=== PATIENT | male | born 1935 | race Caucasian/White ===

== ENCOUNTER → 2022-09-16 16:16 | Outpatient (CLI) | payer MEDICARE, OTHER, SELFPAY ==
--- NOTE | 2022-09-16 16:23 | DI.RAD.S_ITS ---
PROCEDURE: XR SHOULDER RT MIN 2V INDICATIONS: right shoulder pain reduced rom worsening x 7 days-fall TECHNIQUE: 3 views of the shoulder were acquired. COMPARISON: None. FINDINGS: Bones: No fractures or dislocations. No suspicious bony lesions. Visualized ribs appear intact. Mild glenohumeral and acromioclavicular joint osteoarthritis. Soft tissues: No suspicious soft tissue calcifications. Thoracic spine neurostimulator lead. 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 IMPRESSION: No fracture. No acute osseous lesion. If symptoms and/or clinical suspicion for pathology persists, further assessment with repeat radiographs (7-10 days) or advanced imaging (e.g. CT, MRI or bone scan) should be considered. Dictated by: Devorah Jones MD, PhD on 09/16/2022 at 16:50 Approved by: Devorah Jones MD, PhD on 09/16/2022 at 16:51
== END ==
PROVIDERS: Family Provider Internal Medicine; PCP Internal Medicine; Referring Provider Student in an Organized Health Care Education/Training Program; Visit Provider Student in an Organized Health Care Education/Training Program
DX: S46.919A Strain of unspecified muscle, fascia and tendon at shoulder and upper arm level, unspecified arm, initial encounter (principal); M25.511 Pain in right shoulder; M19.011 Primary osteoarthritis, right shoulder; Z98.2 Presence of cerebrospinal fluid drainage device; Z96.82 Presence of neurostimulator; W19.XXXA Unspecified fall, initial encounter
CPT/HCPCS: 73030

== ENCOUNTER → 2022-10-22 13:35 | Outpatient (CLI) | payer MEDICARE, OTHER, SELFPAY ==
--- NOTE | 2022-10-22 13:38 | DI.CT.S_ITS ---
PROCEDURE: CT SHOULDER RIGHT WITH CON INDICATIONS: BURSITIS IN RT SHOULDER TECHNIQUE: After the intra-articular administration of 12 mL of dilute non-ionic contrast, 1-1.5 mm thick sections acquired from the acromioclavicular joint to the inferior scapula, with coronal and sagittal reformatting. COMPARISON: [facility], CR, XR SHOULDER RT MIN 2V, 09/16/2022, 16:31. [facility], RF, [place] SHOULDER INJECTION MR/CT RT, 10/22/2022, 15:06. FINDINGS: Image quality: Excellent. Bones: There is no evidence for acute osseous abnormality identified. There is moderate to severe AC joint degenerative change and [id number] glenohumeral joint degenerative change. Contrast is noted to extend out of shoulder joint into the subacromial subdeltoid bursa consistent with full-thickness tears involving the supra and infraspinatus tendons. Soft tissues: Appear within normal limits. 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 IMPRESSION: 1. Contrast from the intra-articular injection does appear to extend out of the shoulder joint into the subacromial subdeltoid bursa with what appear to be a full-thickness tears of the supra and infraspinatus tendons. 2. 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 [id number] glenohumeral joint degenerative change. 4. 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 5. No evidence for acute osseous abnormality. Dictated by: Herber Clement M.D. on 10/22/2022 at 14:46 Approved by: Herber Celment M.D. on 10/22/2022 at 14:59
--- NOTE | 2022-10-22 13:39 | DI.RAD.S_ITS ---
PROCEDURE: [place] SHOULDER INJECTION MR/CT RT INDICATIONS: BURSITIS IN RT SHOULDER COMPARISON: Located Within [facility], CT, CT SHOULDER RIGHT WITH CON, 10/22/2022, 14:00. TECHNIQUE: The indications, alternatives, benefits, risks, and complications of the procedure were explained to the patient. Written informed consent was obtained and placed in the chart. The shoulder was examined fluoroscopically and a site for needle placement chosen for entry into the glenohumeral joint from an anterior approach. The skin was prepped and draped in a sterile fashion, and 1% lidocaine infiltrated from skin down to joint capsule. A spinal needle was inserted into the glenohumeral joint, and a small amount of iodinated contrast media injected to confirm intra-articular placement of the needle tip. This was followed by approximately 12 mL of iodinated contrast. The needle was removed and a dressing was applied. The patient was given postprocedural instructions and sent to the CT suite for imaging. FINDINGS: A single fluoroscopic spot image demonstrates intra-articular location of injected iodinated contrast. IMPRESSION: Successful fluoroscopically guided administration of iodinated contrast solution into the shoulder joint for CT arthrogram. Dictated by: Armando Guerra M.D. on 10/22/2022 at 16:43 Approved by: Armando Guerra M.D. on 10/22/2022 at 16:45
== END ==
PROVIDERS: Family Provider Internal Medicine; PCP Internal Medicine; Referring Provider Orthopaedic Surgery; Visit Provider Orthopaedic Surgery
DX: M75.51 Bursitis of right shoulder (principal)
CPT/HCPCS: 23350; 73201; 77002